=== PATIENT | male | born 1970 | race Caucasian/White ===

== ENCOUNTER 2023-06-14 10:54 | Day surgery (SDC) | payer BC ==
[2023-06-14 12:41] LABS: Glucose,Whole Blood 114 mg/dL (70-110)
[2023-06-14] MEDS: LACTATED RINGERS 1,000 ML IV SCH (12:42)
[2023-06-14 13:01] VITALS: TEMP 97.3
[2023-06-14] MEDS ORDERED: PROPOFOL 10 MG/ML 20 ML VIAL IV ONE (13:25)
--- NOTE | 2023-06-14 13:29 | P.GSHP ---
History of Present Illness H&P Date: 06/14/23 Chief Complaint: screening colonoscopy this a 52-year-old male presents today for screening colonoscopy. Patient denies a significant GI complaints. Past Medical History Past Medical History: Diabetes Mellitus, GERD/Reflux Additional Past Medical History / Comment(s): [id number] diet & works out, probable kidney stone History of Any Multi-Drug Resistant Organisms: None Reported Past Surgical History: Hernia Repair, Orthopedic Surgery Additional Past Surgical History / Comment(s): ORIF left femur Past Anesthesia/Blood Transfusion Reactions: No Reported Reaction Additional Past Anesthesia/Blood Transfusion Reaction / Comment(s): no hx. of transfusion reaction Smoking Status: Former smoker Medications and Allergies Home Medications Medication Instructions Recorded Confirmed Type Creatine 1 tab PO DAILY 06/11/23 06/14/23 History Multivitamins, Thera [Multivitamin 1 tab PO DAILY 06/11/23 06/14/23 History (formulary)] Testosterone Cypionate 100 mg IM WEEKLY 06/11/23 06/14/23 History [Depo-Testosterone] Allergies Allergy/AdvReac Type Severity Reaction Status Date / Time Penicillins Allergy Unknown Verified 06/14/23 12:27 Childhood Surgical - Exam Vital Signs Temp Pulse Resp BP Pulse Ox 97.3 F L 69 15 156/86 97 06/14/23 12:40 06/14/23 12:40 06/14/23 12:40 06/14/23 12:40 06/14/23 12:40 - General well developed, well nourished, no distress - Eyes PERRL - ENT normal pinna - Neck no masses - Respiratory normal expansion - Cardiovascular Rhythm: regular - Abdomen Abdomen: soft, non tender Results - Labs Abnormal Lab Results - Last 24 Hours (Table) 06/14/23 Range/Units 12:34 POC Glucose (mg/dL) 114 H (70-110) mg/dL Assessment and Plan Assessment: perform screening colonoscopy
--- NOTE | 2023-06-14 13:45 | P.OP ---
Date of Procedure: 06/14/23 Preoperative Diagnosis: screening colonoscopy Postoperative Diagnosis: normal colonoscopy Procedure(s) Performed: colonoscopy Anesthesia: MAC Surgeon: Edi Arechiga Pathology: none sent Condition: stable Disposition: PACU Description of Procedure: PROCEDURE: The patient was placed on the endoscopy table in the lateral position. Digital rectal examination was performed which revealed no abnormalities. The prostate was symmetrical without nodules. Flexible colonoscope was then placed in the patient's anus and passed throughout the entire colon. The ileocecal valve was visualized. The cecum, ascending, transverse, descending and sigmoid colon were normal. The rectum was normal as well. There were no masses, polyps or diverticula noted in the entire colon. SUMMARY OF FINDINGS: Normal colonoscopy.
[2023-06-14 15:08] VITALS: BP 165/78; PULSE 78; RESP 16
== END 2023-06-14 14:30 | disposition home or self-care (01) ==
LOC: ORWHC2ENDO 10:54
PROVIDERS: ATTEND Surgery
DX: Z12.11 Encounter for screening for malignant neoplasm of colon (principal); K21.9 Gastro-esophageal reflux disease without esophagitis; E11.9 Type 2 diabetes mellitus without complications; G47.33 Obstructive sleep apnea (adult) (pediatric); Z98.890 Other specified postprocedural states; Z87.891 Personal history of nicotine dependence; Z79.899 Other long term (current) drug therapy; Z88.0 Allergy status to penicillin
CPT/HCPCS: 45378